=== PATIENT | female | born 1950 | race Caucasian/White ===

== ENCOUNTER → 2017-04-14 | Outpatient (CLI) | payer OTHER, BC ==
[~2017-04-14] MED LIST: CLARITIN PO; GLC500 PO; SERT-234
--- NOTE | 2017-04-14 12:28 | DIAGNOSTIC IMAGING REPORT ---
LUMBAR SPINE W/O CONTRAST HISTORY: Back pain. Radiculopathy. PAIN, LOOKING FOR A DISC TECHNIQUE: Multiplanar multisequence MRI of the lumbar spine was performed without the use of contrast. COMPARISON: None. FINDINGS: For the purpose of the report the L5-S1 disc space will be located on axial image 26 of 30. Moderate degenerative disc desiccation throughout the entire lumbar region. Vertebral body stature is normal. No evidence for compression deformity. No evidence for bone marrow infiltrating process. L1-L2: Minimal broad-based disc bulge. Minimal impact anterior thecal sac. L2-L3: Minimal/mild broad-based disc bulge. Minimal impact anterior thecal sac. 2 cm left renal cyst versus benign angiomyolipoma L3-L4: Mild broad-based disc herniation. Moderate impact anterior aspect thecal sac. Moderate narrowing of the neuroforamina bilaterally. L4-L5: Right central bulging disc. Minimal impact anterior thecal sac on the right. No significant compromise of the neuroforamina. L5-S1: Minimal broad-based central disc bulge. Minimal impact upon the anterior thecal sac. IMPRESSION: 1. Mild broad-based disc herniation L3-L4 with moderate impact upon the anterior thecal sac and moderate narrowing of the neuroforamina bilaterally.. 2. Mild right central disc bulge L4-L5, centrally at L5-S1, and minimally at L2-L3. 3. A major disc herniation or significant component of spinal stenosis is not appreciated. 4. Narrowing of the neuroforamina bilaterally at L3/L4 is estimated 50% of cross-sectional area. The above report was generated using voice recognition software. It may contain grammatical, syntax or spelling errors. Electronically signed by: Juancarlos Dougherty M.D. 04/14/2017 12:26 PM Dictated Date/Time: 04/14/2017 12:20 PM
== END | disposition home or self-care (01) ==
LOC: C.MRIBC 11:28
PROVIDERS: ATTEND Orthopaedic Surgery
DX: M51.26 Other intervertebral disc displacement, lumbar region (principal)

== ENCOUNTER → 2017-04-16 | Outpatient (CLI) | payer OTHER, BC ==
--- NOTE | 2017-04-16 14:54 | DIAGNOSTIC IMAGING REPORT ---
FLUOROSCOPICALLY GUIDED LEFT HIP STEROID AND ANESTHETIC INJECTION CLINICAL HISTORY: DJD LEFT HIPleft hip pain COMPARISON STUDY: Outside conventional radiographic study dated 817 FLUOROSCOPY TIME: 24 seconds. NUMBER OF FLUOROSCOPIC IMAGES: 1 FINDINGS: A timeout was performed. The risks the procedure were explained the patient informed consent was obtained. Patient was prepped and draped in sterile fashion. The skin was anesthetized 1% lidocaine. Under fluoroscopic guidance, 20-gauge needle was placed into the joint capsule left hip. Intra-articular location was documented with injection of Optiray 300. 2 cc of betamethasone, and 5 cc of 0.5% bupivacaine There are no immediate complications were instilled into the joint capsule IMPRESSION: 1. Successful fluoroscopically guided intra-articular left hip injection. 2 cc of betamethasone and 5 cc of 0.5% bupivacaine were instilled into the joint capsule. Electronically signed by: Mitchell Whitehead M.D. 04/16/2017 2:53 PM Dictated Date/Time: 04/16/2017 2:51 PM
== END | disposition home or self-care (01) ==
LOC: C.RADBC 13:31
PROVIDERS: ATTEND Orthopaedic Surgery
DX: M16.12 Unilateral primary osteoarthritis, left hip (principal)